=== PATIENT | female | born 1960 | race Caucasian/White ===

== ENCOUNTER 2019-01-09 14:58 | Day surgery (SDC) | payer OTHER ==
[~2019-01-09 14:58] MED LIST: LIDOCAINE 2% (SDV) 5 ML INJ
[2019-01-09] MEDS: BUPIVACAINE 0.5% (SDV) 30 ML INJ (16:12)
[2019-01-09] MEDS ORDERED: PROPOFOL 20 ML (16:45)
[2019-01-09] MEDS ORDERED: BUPIVACAINE 0.5% (SDV) 30 ML INJ (16:46)
[2019-01-09] MEDS ORDERED: FENTAnyl 50 MCG/ML VIAL (17:06)
[2019-01-09] MEDS ORDERED: CEFAZOLIN 1 GM INJ (17:07)
[2019-01-09] MEDS ORDERED: ROCURONIUM 50 MG INJ (17:07)
[2019-01-09] MEDS: POLYMYXIN/BACITRACIN 1L IRRIG (17:21)
[2019-01-09] MEDS ORDERED: DEXAMETHASONE 4 MG/ML 5 ML INJ (17:49)
[2019-01-09] MEDS ORDERED: ONDANSETRON 4 MG INJ (17:49)
[2019-01-09] MEDS ORDERED: NEOSTIGMINE 3 MG/3 ML SYRINGE (17:54)
[2019-01-09] MEDS ORDERED: GLYCOPYRROLATE 0.4 MG INJ (17:54)
[2019-01-09] MEDS ORDERED: MEPERIDINE 25 MG INJ IV (18:30)
[2019-01-09] MEDS ORDERED: HYDROmorphONE 1 MG/5 ML IV SYRINGE IV ×3 (18:30)
[2019-01-09] MEDS ORDERED: DIPHENHYDRAMINE 50 MG INJ IV (18:30)
[2019-01-09] MEDS ORDERED: METOCLOPRAMIDE 10 MG INJ IV (18:30)
[2019-01-09] MEDS ORDERED: ALBUTEROL 0.083% (NEB) 2.5 MG/3 ML AMP HHN (18:30)
[2019-01-09] MEDS ORDERED: FENTAnyl 50 MCG/ML VIAL IV ×3 (18:30)
[2019-01-09] MEDS ORDERED: KETOROLAC 30 MG INJ IV (18:30)
[2019-01-09] MEDS ORDERED: hydrALAzine 20 MG INJ IV (18:30)
[2019-01-09] MEDS ORDERED: EPHEDrine SULFATE 50 MG/5 ML SYG IV (18:30)
[2019-01-09] MEDS ORDERED: LABETALOL HCL 20MG INJ IV (18:30)
[2019-01-09] MEDS ORDERED: OXYCODONE/ACETAMINOPHEN (5/325) TAB PO ×2 (18:30)
[2019-01-09] MEDS ORDERED: MIDAZOLAM 1 MG/ML 2 ML INJ IV (18:30)
[2019-01-09] MEDS: ONDANSETRON 4 MG INJ IV (19:14)
== END 2019-01-09 19:41 | disposition home or self-care (01) ==
LOC: SDS 14:58
DX: S52.571D Other intraarticular fracture of lower end of right radius, subsequent encounter for closed fracture with routine healing (principal); W19.XXXD Unspecified fall, subsequent encounter; G56.01 Carpal tunnel syndrome, right upper limb
CPT/HCPCS: 25609; 73110-RT